=== PATIENT | female | born 1960 | race Caucasian/White ===

== ENCOUNTER 2021-09-18 13:50 | Emergency (ER) | payer OTHER ==
[~2021-09-18] VITALS: Ht 160 cm; Wt 63.0 kg
[2021-09-18] MEDS ORDERED: DIOVAN320 MG (14:19)
[2021-09-18] MEDS ORDERED: LEVAQUIN (14:20)
[2021-09-18] MEDS ORDERED: FLAGYL375 MG (14:20)
[2021-09-18] MEDS ORDERED: PEPCID AC20 MG (14:20)
== END 2021-09-19 00:27 | disposition home or self-care (01) ==
LOC: ER 13:50
DX: K57.90 Diverticulosis of intestine, part unspecified, without perforation or abscess without bleeding (principal); R10.32 Left lower quadrant pain; R93.89 Abnormal findings on diagnostic imaging of other specified body structures; I10 Essential (primary) hypertension; E11.9 Type 2 diabetes mellitus without complications; Z88.6 Allergy status to analgesic agent; Z88.8 Allergy status to other drugs, medicaments and biological substances; Z20.822 Contact with and (suspected) exposure to COVID-19

== ENCOUNTER 2021-11-01 07:55 | Emergency (ER) | payer OTHER ==
[~2021-11-01] VITALS: Ht 160 cm; Wt 63.5 kg
[~2021-11-01 07:55] MED LIST: DIOVAN320 MG; FLAGYL375 MG; LEVAQUIN; PEPCID AC20 MG
[2021-11-01] MEDS ORDERED: MEDROLPACK PO (11:35)
[2021-11-01] MEDS ORDERED: ZOFRAN8 MG PO (11:35)
== END 2021-11-01 11:53 | disposition home or self-care (01) ==
LOC: ER 07:55
DX: K29.70 Gastritis, unspecified, without bleeding (principal); Z88.6 Allergy status to analgesic agent; Z20.822 Contact with and (suspected) exposure to COVID-19

== ENCOUNTER 2021-11-29 11:59 | Emergency (ER) | payer OTHER ==
[~2021-11-29] VITALS: Ht 160 cm; Wt 62.6 kg
[~2021-11-29 11:59] MED LIST changes: +MEDROLPACK PO; +ZOFRAN8 MG PO
[2021-11-29] MEDS ORDERED: PEPCID AC20 MG PO (12:53)
[2021-11-29] MEDS ORDERED: CIPRO250 MG PO (12:54)
== END 2021-11-29 13:53 | disposition home or self-care (01) ==
LOC: ER 11:59
DX: R10.9 Unspecified abdominal pain (principal); Z88.6 Allergy status to analgesic agent; Z85.9 Personal history of malignant neoplasm, unspecified

== ENCOUNTER 2022-01-05 14:23 | Inpatient (IN) | payer OTHER ==
[~2022-01-05] VITALS: Ht 160 cm; Wt 61.2 kg
[~2022-01-05 14:23] MED LIST changes: +CIPRO250 MG PO; +PEPCID AC20 MG PO
[2022-01-13] MEDS ORDERED: CLONAZEPAM2 MG (08:35)
[2022-01-13] MEDS ORDERED: ESOMEPRAZOLE MA20 MG (08:35)
[2022-01-13] MEDS ORDERED: DICLOFENAC SOD100 GM (08:35)
[2022-01-13] MEDS ORDERED: DULOXETINE HCL30 MG (08:35)
[2022-01-13] MEDS ORDERED: MIRTAZAPINE30 MG (08:35)
[2022-01-13] MEDS ORDERED: QUETIAPINE FUMA50 MG (08:35)
== END 2022-01-14 14:17 | disposition home or self-care (01) | DRG 743 ==
LOC: SURG 01-13 05:30 → O/R 01-13 05:30 → OB/GYN 01-13 12:15 → SURG 01-13 20:10
PROVIDERS: ADMIT Obstetrics & Gynecology Gynecologic Oncology; ATTEND Obstetrics & Gynecology Gynecologic Oncology
PROC: 07BC4ZZ Excision of Pelvis Lymphatic, Percutaneous Endoscopic Approach (ICD-10-PCS; 2022-01-13)
PROC: 0UT74ZZ Resection of Bilateral Fallopian Tubes, Percutaneous Endoscopic Approach (ICD-10-PCS; 2022-01-13)
PROC: 0UT24ZZ Resection of Bilateral Ovaries, Percutaneous Endoscopic Approach (ICD-10-PCS; 2022-01-13)
PROC: 0UT94ZZ Resection of Uterus, Percutaneous Endoscopic Approach (ICD-10-PCS; principal; 2022-01-13 13:15)
DX: N84.0 Polyp of corpus uteri (principal); N72 Inflammatory disease of cervix uteri; N83.291 Other ovarian cyst, right side; N83.292 Other ovarian cyst, left side; Z20.822 Contact with and (suspected) exposure to COVID-19